=== PATIENT | male | born 1985 | race Caucasian/White ===

== ENCOUNTER 2017-05-24 21:00 | Emergency (ER) | payer MEDICAID ==
--- NOTE | 2017-05-24 21:41 | ED Physician Chart ---
ED Chief Complaint/HPI - Patient Information Date Seen:: 05/24/17 Time Seen:: 21:38 Chief Complaint:: Cough, fever History of Present Illness:: 31 yo male had fever and cough productive of brown sputum for 1 day. The patient also had diarrhea, muscle pain and headache. Allergies:: Allergies Allergy/AdvReac Type Severity Reaction Status Date / Time No Known Allergies Allergy Verified 05/24/17 21:15 Vitals:: Vital Signs - 8 hr 05/24/17 21:00 Temp 98.0 F HR 75 RR 18 BP 125/80 O2 Sat % 96 ED Review of Systems - Review of Systems General/Constitutional: Fever Skin: No skin lesions Head: Headache ENT: No nasal drainage Neck: No neck pain Cardio Vascular: No chest pain Pulmonary: Cough, Sputum GI: No nausea, No vomiting, Diarrhea Musculoskeletal: Muscle pain Neurological: No focal symptoms ED Past Medical History - Past Medical History Past Medical History: No significant medical hx Social History: Smoker, Alcohol, No Drug Use Family Medical History - Family Member Mother History Unknown: Yes ED Physical Exam - Physical Examination General/Constitutional: Awake Head: Atraumatic Eyes: PERRL Skin: No skin lesions Other ENMT comments:: oropharyngeal erythema Other Respiratory comments:: mild rhonchi Cardio Vascular: RRR, No murmur, gallop, rubs, NL S1 S2 GI: No tenderness/rebounding/guarding Extremities: normal strength in all extremities Neuro/Psych: No focal deficits ED Labs/Radiology/EKG Results - Radiology Results Results: CXR: right basal atelectasis ED Assessment - Assessment General Assessment: Bronchitis Assessment/Comments:: CBC, CMP Influenza A, B DuoNeb Robitussin Rocephin 1g IM D/c home Azithromycin 250mg qd Robitussin prn F/u PCP or return to ER if symptoms worsen ED Septic Shock - . Is Septic Shock (SBP<90, OR Lactate>4 mmol\L) present?: No - <6hrs of presentation: Vital Signs: Vital Signs - 8 hr 05/24/17 21:00 Temp 98.0 F HR 75 RR 18 BP 125/80 O2 Sat % 96 ED Reassessment (Disposition) - Reassessment Reassessment Condition:: Improved - Patient Disposition Discharge/Transfer:: Home ED Discharge Plan - Patient Disposition Admit/Discharge/Transfer: PT DISCHARGED HOME Prescriptions: Azithromycin [Zithromax] 250 mg PO DAILY #6 tab Guaifenesin DM [Robitussin DM] 10 ml PO Q6H PRN #120 ml PRN Reason: Cough Or Congestion Instructions: Bronchitis, [id number] Additional Instructions: FOLLOW UP WITH YOUR PRIMARY MEDICAL DOCTOR GIAN TAKE PRESCRIBED MEDICATIONS ORDERED
[2017-05-24] MEDS ORDERED: Albuterol/Ipratropium Neb 3 ML AERS HHN ONE ×2 (21:42→21:55)
[2017-05-24 22:02] LABS: INF A SCREEN NEG FOR INF A; INF B SCREEN NEG FOR INF B
[2017-05-24 22:03] LABS: % BASOPHILS 0.5 % (0.0-2.0); % EOSINOPHILS 4.2 % (0.0-5.0); % LYMPHOCYTES 32.3 % (20.0-50.0); % MONOCYTES 9.7 % (2.0-10.0); % NEUTROPHILS 53.3 % (40.0-80.0); EOSINOPHILE ABSOLUTE 0.3 Th/cmm (0.1-0.4); HEMATOCRIT 45.8 % (41.0-60); HEMOGLOBIN 15.3 gm/dL (12-16); LYMPHOCYTE ABSOLUTE 2.5 Th/cmm (1.5-3.0); MEAN CELL VOLUME 87.7 fl (80-99); MEAN CORPUSCULAR HEMOGLOBIN 29.4 pg (26.0-30.0); MEAN CORPUSCULAR HGB CONC 33.5 pg (28.0-36.0); MEAN PLATELET VOLUME 8.1 fl; MONOCYTE ABSOLUTE 0.7 Th/cmm (0.3-1.0); NEUTROPHILE ABSOLUTE 4.2 Th/cmm (1.8-8.0); PLATELET COUNT 197 Th/cmm (150-400); RED BLOOD COUNT 5.23 Mil/cmm (4.30-5.70); WHITE BLOOD COUNT 7.7 Th/cmm (4.8-10.8)
[2017-05-24 22:20] LABS: ALB/GLOB RATIO 1.6 (1.0-1.8); ALBUMIN 4.4 gm/dL (4.2-5.5); ALKALINE PHOSPHATASE 103 U/L (34-104); ANION GAP 11.5 (7.0-16.0); BILIRUBIN,TOTAL 0.5 mg/dL (0.3-1.0); BUN - UREA NITROGEN 11 mg/dL (7-25); CALCIUM SERUM 9.3 mg/dL (8.6-10.3); CARBON DIOXIDE 24.2 mEq/L (21.0-31.0); CHLORIDE 103 mEq/L (98-107); CREATININE - SERUM 0.9 mg/dL (0.7-1.3); GFR AFRICAN-AMERICAN > 60.0 ml/min (>90); GFR NON AFRICAN-AMERICAN > 60.0 ml/min; GLUCOSE 105 mg/dL (70-105); POTASSIUM SERUM 3.7 mEq/L (3.5-5.1); SGOT 20 U/L (13-39); SGPT/ALT 25 U/L (7-52); SODIUM SERUM 135 mEq/L (136-145); TOTAL PROTEIN,SERUM 7.2 gm/dL (6.0-8.3)
[2017-05-24] MEDS ORDERED: Guaifenesin DM 10 ML UDC PO PRN (22:41)
--- NOTE | 2017-05-25 07:48 | Diagnostic Imaging Report ---
CHEST X-RAY: AP view INDICATION: Cough COMPARISON: None FINDINGS: slight increased right basal lung markings are noted. There is no focal consolidation or pleural effusions The heart is normal in size. The osseous structures demonstrate no acute abnormalities. IMPRESSION: Slight increased right basal lung markings favoring atelectatic changes. No focal consolidation is identified.
== END 2017-05-24 22:55 | disposition home or self-care (01) ==
LOC: ER 21:00
DX: R50.9 Fever, unspecified (principal); R19.7 Diarrhea, unspecified; M79.1 Myalgia; F17.200 Nicotine dependence, unspecified, uncomplicated
CPT/HCPCS: 99285; 96372; 94640 ×2; 71045; 36415; 87804 ×2; 85025; 80053; J0696